=== PATIENT | female | born 1960 | race African-American/Black ===

== ENCOUNTER 2020-07-11 23:19 | Inpatient (IN) | payer MEDICAID ==
[~2020-07-11] VITALS: Ht 157.5 cm; Wt 77.4 kg
[2020-07-11] MEDS ORDERED: IPRATROPIUM BROMIDE (0.02%) 0.5MG/2.5ML NEB HHN STA (23:21)
[2020-07-11] MEDS ORDERED: MAGNESIUM 2 G PREMIX 50 ML IV STA (23:21)
[2020-07-11] MEDS ORDERED: METHYLPREDNISOLONE SOD SUCC 125 MG/2 ML VIAL IV STA (23:21)
[2020-07-11] MEDS ORDERED: ALBUTEROL (0.083%) 2.5MG/3ML NEB HHN STA (23:21)
[2020-07-12] LABS: HEMATOCRIT 40.8 % (36.0-48.0); HEMOGLOBIN 13.6 g/dL (12.0-16.0); MEAN CORPUSCULAR HEMOGLOBIN 27.6 pg (28.0-32.0); MEAN CORPUSCULAR VOLUME 82.8 fL (81.0-99.0); PLATELET 208 x1000/uL (130-400); RED BLOOD CELL COUNT 4.92 mill/uL (4.2-5.4); RED CELL DISTRIBUTION WIDTH 14.2 % (11.6-14.6)
[2020-07-12 00:13] LABS: CHLORIDE 109 mEq/L (98-107)
[2020-07-12] MEDS ORDERED: ASPIRIN 325MG EC TABLET PO NR (01:15)
[2020-07-12] MEDS ORDERED: FUROSEMIDE 100MG/10ML VIAL IVP NR (01:30)
[2020-07-12] MEDS: METHOCARBAMOL 750MG TABLET PO SCH ×2 (13:22→22:23)
[2020-07-13 00:30] VITALS: BP 136/83
[2020-07-13] MEDS ORDERED: IPRATROPIUM/ALBUTEROL 0.5-3(2.5)MG/3ML NEB HHN PRN (01:15)
[2020-07-13] MEDS: IPRATROPIUM/ALBUTEROL 0.5-3(2.5)MG/3ML NEB HHN SCH ×4 (03:46→21:25)
[2020-07-13 04:00] VITALS: BP 124/82
[2020-07-13] MEDS: METHOCARBAMOL 750MG TABLET PO SCH ×3 (06:15→22:00)
[2020-07-13] MEDS: LEVOFLOXACIN 500MG PREMIX 100 ML IV SCH (06:15)
[2020-07-13] MEDS: PANTOPRAZOLE 40MG DR TABLET PO SCH (06:16)
[2020-07-13 08:00] VITALS: BP 112/87
[2020-07-13] MEDS ORDERED: METHYLPREDNISOLONE SOD SUCC 40 MG/ML VIAL IV SCH (08:00)
[2020-07-13] MEDS ORDERED: ENOXAPARIN 30MG/0.3ML SYR SUBCUT SCH (09:00)
[2020-07-13] MEDS: ASPIRIN 81MG EC TABLET PO SCH (09:42)
[2020-07-13] MEDS ORDERED: POTASSIUM CHLORIDE 20MEQ TABLET SR PO NR (11:00)
[2020-07-13 12:00] VITALS: BP 117/74
[2020-07-13] MEDS: FUROSEMIDE 40MG/4ML VIAL IVP SCH (12:13)
[2020-07-13] MEDS: NICOTINE 14MG PATCH TD SCH (12:13)
[2020-07-13 13:44] LABS: *BENZODIAZEPINES SCREEN URINE NEGATIVE (NEGATIVE); OPIATES URINE SCREEN NEGATIVE (NEGATIVE); PHENCYCLIDINE URINE SCREEN NEGATIVE (NEGATIVE)
[2020-07-13 13:45] LABS: *AMPHETAMINES SCREEN URINE NEGATIVE (NEGATIVE); *BARBITURATES SCREEN URINE NEGATIVE (NEGATIVE); *COCAINE SCREEN URINE PRESUMTIVE POSITIVE (NEGATIVE); CANNABINOID URINE SCREEN NEGATIVE (NEGATIVE)
[2020-07-13 13:47] LABS: METHADONE URINE SCREEN NEGATIVE (NEGATIVE)
[2020-07-13] MEDS: BUDESONIDE 0.5MG/2ML NEB HHN SCH ×2 (15:09→21:25)
[2020-07-13 16:00] VITALS: BP 116/88
[2020-07-13] MEDS ORDERED: MONTELUKAST SODIUM 10MG TABLET PO SCH (17:00)
[2020-07-13] MEDS ORDERED: DIGOXIN 125MCG TABLET PO SCH (18:00)
[2020-07-13 20:00] VITALS: BP 129/84
[2020-07-14] VITALS: BP 121/77
[2020-07-14] MEDS: IPRATROPIUM/ALBUTEROL 0.5-3(2.5)MG/3ML NEB HHN SCH ×3 (01:48→15:41)
[2020-07-14 04:00] VITALS: BP 119/75
[2020-07-14] MEDS: METHOCARBAMOL 750MG TABLET PO SCH ×2 (06:23→14:13)
[2020-07-14] MEDS: PANTOPRAZOLE 40MG DR TABLET PO SCH (06:23)
[2020-07-14 06:34] LABS: CHLORIDE 106 mEq/L (98-107)
[2020-07-14 06:36] LABS: BASOPHILS % 0.5 % (0.0-2.0); HEMATOCRIT. 39.8 % (36.0-48.0); HEMOGLOBIN. 13.1 g/dL (12.0-16.0); LYMPHOCYTES % 12.2 % (20.0-50.0); MEAN CORPUSCULAR HEMOGLOBIN 26.9 pg (28.0-32.0); MEAN CORPUSCULAR VOLUME 81.7 fL (81.0-99.0); MEAN PLATELET VOLUME 9.1 fl (7.4-10.4); MONOCYTES % 6.2 % (2.0-8.0); NEUTROPHILS % 81.1 % (40.0-76.0); PLATELET 228 x1000/uL (130-400); RED BLOOD CELL COUNT 4.86 mill/uL (4.2-5.4); RED CELL DISTRIBUTION WIDTH 13.8 % (11.6-14.6)
[2020-07-14 08:00] VITALS: BP 133/85
[2020-07-14] MEDS ORDERED: ENOXAPARIN 40MG/0.4ML SYR SUBCUT SCH (09:00)
[2020-07-14] MEDS: FUROSEMIDE 40MG/4ML VIAL IVP SCH (09:24)
[2020-07-14] MEDS: LEVOFLOXACIN 500MG PREMIX 100 ML IV SCH (09:24)
[2020-07-14] MEDS: NICOTINE 14MG PATCH TD SCH (09:24)
[2020-07-14] MEDS: ASPIRIN 81MG EC TABLET PO SCH (09:28)
[2020-07-14] MEDS: BUDESONIDE 0.5MG/2ML NEB HHN SCH (09:40)
[2020-07-14 12:00] VITALS: BP 115/65
[2020-07-14] MEDS ORDERED: FURO-151 MT (13:30)
[2020-07-14] MEDS ORDERED: POTA20TA82 MT (13:30)
[2020-07-14] MEDS ORDERED: ALBU18HF2 IH (13:30)
[2020-07-14] MEDS ORDERED: FLUT1DIS3 INH (13:30)
[2020-07-14] MEDS ORDERED: LOSA25TA26 MT (13:30)
[2020-07-14] MEDS ORDERED: CARV12.545 MT (13:30)
[2020-07-14 14:51] LABS: CLARITY URINE CLEAR (CLEAR); COLOR URINE YELLOW (YELLOW); KETONES URINE NEGATIVE (NEGATIVE); LEUKOCYTE ESTERASE URINE NEGATIVE (NEGATIVE); NITRITE URINE NEGATIVE (NEGATIVE); OCCULT BLOOD URINE NEGATIVE (NEGATIVE); PROTEIN URINE NEGATIVE (NEGATIVE); SPECIFIC GRAVITY URINE 1.013 (1.005-1.030); UROBILINOGEN URINE 0.2 E.U./dL (0.2-1.0)
[2020-07-14 16:41] VITALS: BP 115/65
[2020-07-15] MEDS ORDERED: FAMOTIDINE 20MG TABLET PO SCH (07:10)
== END 2020-07-14 17:10 | disposition home or self-care (01) | DRG 133 ==
LOC: ER 23:19 → 8WST 07-12 00:40 → CANRESERV 07-12 08:26 → ENRESERV 07-12 08:26 → 8WST 07-12 23:42
PROVIDERS: ADMIT Internal Medicine; ATTEND Internal Medicine
DX: J96.00 Acute respiratory failure, unspecified whether with hypoxia or hypercapnia (principal); I50.23 Acute on chronic systolic (congestive) heart failure; J44.1 Chronic obstructive pulmonary disease with (acute) exacerbation; E87.8 Other disorders of electrolyte and fluid balance, not elsewhere classified; I11.0 Hypertensive heart disease with heart failure; F17.210 Nicotine dependence, cigarettes, uncomplicated; E87.6 Hypokalemia; F14.10 Cocaine abuse, uncomplicated; Z20.822 Contact with and (suspected) exposure to COVID-19; Z71.6 Tobacco abuse counseling; Z86.711 Personal history of pulmonary embolism; Z91.14 Patient's other noncompliance with medication regimen
CPT/HCPCS: 36415; 71045; 80048; 80053; 80305; 81003; 83735; 83880; 84484; 85025; 85027; 93005; 93306; 94640; 94644; 96365; 96375; 99285; C9803; J1650; J1940; J1956; J2920; J2930; J3475; J7626; U0003; U0005

== ENCOUNTER 2020-12-01 10:39 | Emergency (ER) | payer MEDICAID ==
[~2020-12-01] VITALS: Ht 157.5 cm; Wt 73.0 kg
[~2020-12-01 10:39] MED LIST: ALBU18HF2 IH; CARV12.545 MT; FLUT1DIS3 INH; FURO-151 MT; LOSA25TA26 MT; POTA20TA82 MT
[2020-12-01] MEDS ORDERED: AMOX1TAB16 MT (11:44)
[2020-12-01] MEDS ORDERED: TETANUS, DIPHTHERIA, PERTUSSIS VAC/PF 0.5ML (>10YR OLD) IM ONE (11:45)
[2020-12-01 11:57] VITALS: BP 152/86
== END 2020-12-01 11:58 | disposition home or self-care (01) ==
LOC: ER 10:53
DX: S81.851A Open bite, right lower leg, initial encounter (principal); I11.0 Hypertensive heart disease with heart failure; I50.9 Heart failure, unspecified; Z79.899 Other long term (current) drug therapy; W50.3XXA Accidental bite by another person, initial encounter; Y93.89 Activity, other specified; Y92.89 Other specified places as the place of occurrence of the external cause; Y99.8 Other external cause status
CPT/HCPCS: 90471; 90715; 99283

== ENCOUNTER 2021-01-25 15:03 | Inpatient (IN) | payer MEDICAID ==
[~2021-01-25] VITALS: Ht 154.9 cm; Wt 75.1 kg
[~2021-01-25 15:03] MED LIST changes: +AMOX1TAB16 MT
[2021-01-25 15:57] LABS: BASOPHILS % 0.7 % (0.0-2.0); EOSINOPHILS % 2.7 % (0.0-5.0); HEMOGLOBIN. 12.1 g/dL (12.0-16.0); LYMPHOCYTES % 33.5 % (20.0-50.0); MEAN CORPUSCULAR HEMOGLOBIN 26.4 pg (28.0-32.0); MEAN CORPUSCULAR VOLUME 84.8 fL (81.0-99.0); MEAN PLATELET VOLUME 7.9 fl (7.4-10.4); MONOCYTES % 7.1 % (2.0-8.0); PLATELET 226 x1000/uL (130-400); RED CELL DISTRIBUTION WIDTH 13.9 % (11.6-14.6)
[2021-01-25] MEDS ORDERED: LORAZEPAM 2MG/ML CPJ IV ONE (16:00)
[2021-01-25 16:02] LABS: CHLORIDE 112 mEq/L (98-107)
[2021-01-25] MEDS ORDERED: MORPHINE SULFATE 2 MG/ML CPJ (NOT FOR IM USE) IV ONE (18:45)
[2021-01-25] MEDS ORDERED: ASPIRIN 81MG TABLET PO ONE (18:45)
[2021-01-25 18:51] LABS: *AMPHETAMINES SCREEN URINE NEGATIVE (NEGATIVE); *BARBITURATES SCREEN URINE NEGATIVE (NEGATIVE); *BENZODIAZEPINES SCREEN URINE NEGATIVE (NEGATIVE)
[2021-01-25 18:53] LABS: *COCAINE SCREEN URINE PRESUMTIVE POSITIVE (NEGATIVE); CANNABINOID URINE SCREEN NEGATIVE (NEGATIVE); METHADONE URINE SCREEN NEGATIVE (NEGATIVE); OPIATES URINE SCREEN NEGATIVE (NEGATIVE); PHENCYCLIDINE URINE SCREEN NEGATIVE (NEGATIVE)
[2021-01-25] MEDS ORDERED: ENOXAPARIN 60MG/0.6ML SYR SUBCUT ONE (19:45)
[2021-01-25] MEDS ORDERED: ONDANSETRON HCL 4MG/2ML INJ IV PRN (21:30)
[2021-01-25] MEDS ORDERED: ACETAMINOPHEN 325MG TABLET PO PRN (21:30)
[2021-01-25] MEDS: ATORVASTATIN CALCIUM 40MG TABLET PO SCH (22:00)
[2021-01-26 09:28] LABS: BASOPHILS % 1.3 % (0.0-2.0); EOSINOPHILS % 2.2 % (0.0-5.0); HEMOGLOBIN. 11.8 g/dL (12.0-16.0); LYMPHOCYTES % 33.5 % (20.0-50.0); MEAN CORPUSCULAR HEMOGLOBIN 26.9 pg (28.0-32.0); MEAN CORPUSCULAR VOLUME 84.2 fL (81.0-99.0); MEAN PLATELET VOLUME 8.1 fl (7.4-10.4); MONOCYTES % 8.3 % (2.0-8.0); NEUTROPHILS % 54.7 % (40.0-76.0); PLATELET 229 x1000/uL (130-400); RED BLOOD CELL COUNT 4.39 mill/uL (4.2-5.4); RED CELL DISTRIBUTION WIDTH 14.3 % (11.6-14.6)
[2021-01-26 09:37] LABS: INR 1.1; PROTHROMBIN TIME 11.3 sec (9.6-11.0)
[2021-01-26 10:05] LABS: CHLORIDE 113 mEq/L (98-107)
[2021-01-26] MEDS: LOSARTAN POTASSIUM 25 MG TABLET PO SCH (10:22)
[2021-01-26] MEDS: FUROSEMIDE 40MG/4ML VIAL IVP SCH (10:22)
[2021-01-26] MEDS: ASPIRIN 81MG EC TABLET PO SCH (10:22)
[2021-01-26] MEDS: ENOXAPARIN 80MG/0.8ML SYR SUBCUT SCH ×2 (10:23→20:17)
[2021-01-26 10:57] VITALS: BP 125/80
[2021-01-26] MEDS ORDERED: DIGO125T80 MT (11:15)
[2021-01-26] MEDS ORDERED: METO-396 MT (11:15)
[2021-01-26] MEDS: TRAMADOL 50MG TABLET PO PRN ×2 (11:27→18:41)
[2021-01-26 12:00] VITALS: BP 124/78
[2021-01-26] MEDS ORDERED: BENZONATATE 100MG CAPSULE PO PRN (13:45)
[2021-01-26 16:00] VITALS: BP 114/62
[2021-01-26 20:00] VITALS: BP 108/68
[2021-01-26] MEDS: ATORVASTATIN CALCIUM 40MG TABLET PO SCH (20:20)
[2021-01-26] MEDS: IPRATROPIUM/ALBUTEROL 0.5-3(2.5)MG/3ML NEB HHN SCH (20:47)
[2021-01-27] VITALS: BP 115/80
[2021-01-27] MEDS: IPRATROPIUM/ALBUTEROL 0.5-3(2.5)MG/3ML NEB HHN SCH ×4 (01:48→20:58)
[2021-01-27] MEDS: TRAMADOL 50MG TABLET PO PRN ×3 (02:05→17:54)
[2021-01-27 04:00] VITALS: BP 130/82
[2021-01-27 06:24] LABS: BASOPHILS % 1.1 % (0.0-2.0); EOSINOPHILS % 1.7 % (0.0-5.0); HEMATOCRIT. 37.4 % (36.0-48.0); HEMOGLOBIN. 12.2 g/dL (12.0-16.0); MEAN CORPUSCULAR HEMOGLOBIN 27.2 pg (28.0-32.0); MEAN CORPUSCULAR VOLUME 83.4 fL (81.0-99.0); MEAN PLATELET VOLUME 8.3 fl (7.4-10.4); MONOCYTES % 7.8 % (2.0-8.0); NEUTROPHILS % 65.4 % (40.0-76.0); PLATELET 226 x1000/uL (130-400); RED BLOOD CELL COUNT 4.49 mill/uL (4.2-5.4); RED CELL DISTRIBUTION WIDTH 13.7 % (11.6-14.6)
[2021-01-27 06:28] LABS: CHLORIDE 107 mEq/L (98-107)
[2021-01-27 08:00] VITALS: BP 127/88
[2021-01-27] MEDS: ENOXAPARIN 80MG/0.8ML SYR SUBCUT SCH ×3 (09:00→20:28)
[2021-01-27] MEDS: LOSARTAN POTASSIUM 25 MG TABLET PO SCH (09:06)
[2021-01-27] MEDS: FUROSEMIDE 40MG/4ML VIAL IVP SCH (09:06)
[2021-01-27] MEDS: ASPIRIN 81MG EC TABLET PO SCH (09:06)
[2021-01-27 12:00] VITALS: BP 122/70
[2021-01-27 16:00] VITALS: BP 117/86
[2021-01-27] MEDS: LIDOCAINE 5% PATCH TOP SCH (17:57)
[2021-01-27 20:00] VITALS: BP 103/70
[2021-01-27] MEDS: ATORVASTATIN CALCIUM 40MG TABLET PO SCH (20:28)
[2021-01-28] VITALS: BP 113/74
[2021-01-28] MEDS: TRAMADOL 50MG TABLET PO PRN ×2 (00:36→09:22)
[2021-01-28] MEDS: IPRATROPIUM/ALBUTEROL 0.5-3(2.5)MG/3ML NEB HHN SCH ×2 (02:30→08:50)
[2021-01-28 04:00] VITALS: BP 98/56
[2021-01-28 06:42] LABS: BASOPHILS % 0.1 % (0.0-2.0); EOSINOPHILS % 1.3 % (0.0-5.0); HEMATOCRIT. 37.6 % (36.0-48.0); HEMOGLOBIN. 12.3 g/dL (12.0-16.0); LYMPHOCYTES % 25.4 % (20.0-50.0); MEAN CORPUSCULAR HEMOGLOBIN 27.1 pg (28.0-32.0); MEAN CORPUSCULAR VOLUME 82.9 fL (81.0-99.0); MEAN PLATELET VOLUME 8.1 fl (7.4-10.4); MONOCYTES % 8.1 % (2.0-8.0); NEUTROPHILS % 65.1 % (40.0-76.0); PLATELET 240 x1000/uL (130-400); RED BLOOD CELL COUNT 4.54 mill/uL (4.2-5.4)
[2021-01-28 06:54] LABS: CHLORIDE 105 mEq/L (98-107)
[2021-01-28 08:00] VITALS: BP 108/72
[2021-01-28] MEDS: LOSARTAN POTASSIUM 25 MG TABLET PO SCH ×2 (09:00→09:21)
[2021-01-28] MEDS: ENOXAPARIN 80MG/0.8ML SYR SUBCUT SCH (09:00)
[2021-01-28] MEDS: ASPIRIN 81MG EC TABLET PO SCH (09:20)
[2021-01-28] MEDS: LIDOCAINE 5% PATCH TOP SCH (09:21)
[2021-01-28] MEDS: FUROSEMIDE 40MG/4ML VIAL IVP SCH (09:21)
[2021-01-28] MEDS ORDERED: BENZ100C86 PO (10:09)
[2021-01-28] MEDS ORDERED: LOSA25TA3 PO (10:09)
[2021-01-28] MEDS ORDERED: LIP40 PO (10:09)
[2021-01-28] MEDS ORDERED: ASPI-1406 PO (10:09)
[2021-01-28 12:00] VITALS: BP 120/80
[2021-01-28 12:18] VITALS: BP 120/80
== END 2021-01-28 14:15 | disposition home or self-care (01) | DRG 203 ==
LOC: ER 15:03 → 7EST 20:13 → EDBEDREQTM 20:31 → EDBEDREQ 20:31 → ENRESERV 01-26 07:25
PROVIDERS: ADMIT Internal Medicine; ATTEND Internal Medicine
DX: M94.0 Chondrocostal junction syndrome [Tietze] (principal); I33.0 Acute and subacute infective endocarditis; E44.1 Mild protein-calorie malnutrition; I11.0 Hypertensive heart disease with heart failure; I50.9 Heart failure, unspecified; I45.2 Bifascicular block; F17.210 Nicotine dependence, cigarettes, uncomplicated; I44.0 Atrioventricular block, first degree; J44.9 Chronic obstructive pulmonary disease, unspecified; F14.90 Cocaine use, unspecified, uncomplicated; Z82.3 Family history of stroke; Z86.711 Personal history of pulmonary embolism; Z79.2 Long term (current) use of antibiotics; Z79.899 Other long term (current) drug therapy; Z71.6 Tobacco abuse counseling; Z71.51 Drug abuse counseling and surveillance of drug abuser
CPT/HCPCS: 36415; 71045; 80048; 80053; 80061; 80305; 83880; 84484; 85025; 93005; 93306; 94640; 99285; J1650; J1940; J2060; J2270

== ENCOUNTER 2021-04-23 07:43 | Inpatient (IN) | payer MEDICAID ==
[~2021-04-23] VITALS: Ht 317.5 cm; Wt 62.7 kg
[~2021-04-23 07:43] MED LIST changes: -AMOX1TAB16 MT; +ASPI-1406 PO; +BENZ100C86 PO; -CARV12.545 MT; -FLUT1DIS3 INH; +LIP40 PO; +LOSA25TA3 PO; -POTA20TA82 MT
[2021-04-23] MEDS ORDERED: ALBUTEROL (0.083%) 2.5MG/3ML NEB HHN STA (07:58)
[2021-04-23] MEDS ORDERED: METHYLPREDNISOLONE SOD SUCC 125 MG/2 ML VIAL IV STA (07:58)
[2021-04-23] MEDS ORDERED: NITROGLYCERIN 0.4MG TABLET SL SL PRN (08:00)
[2021-04-23] MEDS ORDERED: ASPIRIN 81MG TABLET PO ONE (08:00)
[2021-04-23 08:21] LABS: BASOPHILS % 0.7 % (0.0-2.0); EOSINOPHILS % 0.9 % (0.0-5.0); HEMATOCRIT. 36.8 % (36.0-48.0); HEMOGLOBIN. 11.9 g/dL (12.0-16.0); LYMPHOCYTES % 30.9 % (20.0-50.0); MEAN CORPUSCULAR HEMOGLOBIN 26.6 pg (28.0-32.0); MEAN CORPUSCULAR VOLUME 82.3 fL (81.0-99.0); MEAN PLATELET VOLUME 8.5 fl (7.4-10.4); MONOCYTES % 5.3 % (2.0-8.0); NEUTROPHILS % 62.2 % (40.0-76.0); PLATELET 232 x1000/uL (130-400); RED BLOOD CELL COUNT 4.47 mill/uL (4.2-5.4); RED CELL DISTRIBUTION WIDTH 14.6 % (11.6-14.6)
[2021-04-23 08:26] LABS: CHLORIDE 109 mEq/L (98-107)
[2021-04-23] MEDS ORDERED: ONDANSETRON HCL 4MG/2ML INJ IV PRN (11:45)
[2021-04-23] MEDS: METHYLPREDNISOLONE SOD SUCC 40 MG/ML VIAL IV SCH ×2 (12:15→20:40)
[2021-04-23] MEDS ORDERED: POTASSIUM CHLORIDE 20MEQ TABLET SR PO NR (15:00)
[2021-04-23 16:00] VITALS: BP 109/69
[2021-04-23 17:42] VITALS: BP 109/69
[2021-04-23 17:58] LABS: *AMPHETAMINES SCREEN URINE NEGATIVE (NEGATIVE); *BARBITURATES SCREEN URINE NEGATIVE (NEGATIVE); *BENZODIAZEPINES SCREEN URINE NEGATIVE (NEGATIVE); *COCAINE SCREEN URINE PRESUMTIVE POSITIVE (NEGATIVE); METHADONE URINE SCREEN NEGATIVE (NEGATIVE)
[2021-04-23 17:59] LABS: CANNABINOID URINE SCREEN NEGATIVE (NEGATIVE); OPIATES URINE SCREEN NEGATIVE (NEGATIVE); PHENCYCLIDINE URINE SCREEN NEGATIVE (NEGATIVE)
[2021-04-23] MEDS: FUROSEMIDE 40MG/4ML VIAL IVP SCH (19:08)
[2021-04-23 20:00] VITALS: BP 112/53
[2021-04-23] MEDS: IPRATROPIUM/ALBUTEROL 0.5-3(2.5)MG/3ML NEB HHN SCH (20:00)
[2021-04-23] MEDS: FAMOTIDINE 20MG TABLET PO SCH (20:40)
[2021-04-23] MEDS: ENOXAPARIN 40MG/0.4ML SYR SUBCUT SCH (21:17)
[2021-04-24] VITALS: BP 106/56
[2021-04-24] MEDS: IPRATROPIUM/ALBUTEROL 0.5-3(2.5)MG/3ML NEB HHN SCH ×6 (01:03→20:30)
[2021-04-24] MEDS: METHYLPREDNISOLONE SOD SUCC 40 MG/ML VIAL IV SCH ×3 (03:59→21:01)
[2021-04-24 04:00] VITALS: BP 100/44
[2021-04-24 07:48] VITALS: BP 117/51
[2021-04-24] MEDS: FUROSEMIDE 40MG/4ML VIAL IVP SCH (09:06)
[2021-04-24] MEDS ORDERED: METO25TA6 MT (09:15)
[2021-04-24 12:00] VITALS: BP 120/60
[2021-04-24 16:00] VITALS: BP 129/63
[2021-04-24 20:00] VITALS: BP 117/64
[2021-04-24] MEDS: FAMOTIDINE 20MG TABLET PO SCH (21:00)
[2021-04-24] MEDS: ENOXAPARIN 40MG/0.4ML SYR SUBCUT SCH (21:01)
[2021-04-24] MEDS: ACETAMINOPHEN 325MG TABLET PO PRN (23:20)
[2021-04-25] VITALS: BP 144/82
[2021-04-25] MEDS: IPRATROPIUM/ALBUTEROL 0.5-3(2.5)MG/3ML NEB HHN SCH ×6 (00:09→19:52)
[2021-04-25 04:00] VITALS: BP 135/82
[2021-04-25] MEDS: ACETAMINOPHEN 325MG TABLET PO PRN ×2 (04:06→20:16)
[2021-04-25] MEDS: METHYLPREDNISOLONE SOD SUCC 40 MG/ML VIAL IV SCH ×3 (04:06→20:15)
[2021-04-25 08:00] VITALS: BP 146/96
[2021-04-25] MEDS: FUROSEMIDE 40MG/4ML VIAL IVP SCH (09:05)
[2021-04-25] MEDS: CLONIDINE 0.1MG TABLET PO PRN (09:46)
[2021-04-25 12:00] VITALS: BP 128/76
[2021-04-25] MEDS ORDERED: FURO-151 MT (12:35)
[2021-04-25] MEDS ORDERED: P20 MT (12:35)
[2021-04-25 16:00] VITALS: BP 138/80
[2021-04-25 20:00] VITALS: BP 131/84
[2021-04-25] MEDS: FAMOTIDINE 20MG TABLET PO SCH (20:15)
[2021-04-25] MEDS: ENOXAPARIN 40MG/0.4ML SYR SUBCUT SCH (20:15)
[2021-04-25] MEDS ORDERED: LOPERAMIDE HCL 2MG CAPSULE PO PRN (23:30)
[2021-04-26] VITALS: BP 137/76
[2021-04-26] MEDS: IPRATROPIUM/ALBUTEROL 0.5-3(2.5)MG/3ML NEB HHN SCH ×4 (00:40→12:36)
[2021-04-26] MEDS: ACETAMINOPHEN 325MG TABLET PO PRN (02:02)
[2021-04-26] MEDS: METHYLPREDNISOLONE SOD SUCC 40 MG/ML VIAL IV SCH ×2 (03:30→11:17)
[2021-04-26] MEDS: CLONIDINE 0.1MG TABLET PO PRN (03:45)
[2021-04-26 04:00] VITALS: BP 148/98
[2021-04-26 08:00] VITALS: BP 129/88
[2021-04-26] MEDS: FUROSEMIDE 40MG/4ML VIAL IVP SCH (08:34)
[2021-04-26] MEDS ORDERED: POTASSIUM CHLORIDE 20MEQ TABLET SR PO NR (08:45)
[2021-04-26 11:41] VITALS: BP 120/74
[2021-04-26 12:00] VITALS: BP 120/74
[2021-04-26] MEDS ORDERED: PNEUMOCOCCAL 23-VAL P-SAC VAC 0.5 ML IM ONE (14:00)
== END 2021-04-26 14:55 | disposition home or self-care (01) | DRG 140 ==
LOC: ER 07:43 → 8WST 10:18 → EDBEDREQ 10:20 → ENRESERV 13:09 → 5WST 13:50
PROVIDERS: ADMIT Internal Medicine; ATTEND Internal Medicine
DX: J44.1 Chronic obstructive pulmonary disease with (acute) exacerbation (principal); I50.23 Acute on chronic systolic (congestive) heart failure; I42.9 Cardiomyopathy, unspecified; J68.0 Bronchitis and pneumonitis due to chemicals, gases, fumes and vapors; T59.891A Toxic effect of other specified gases, fumes and vapors, accidental (unintentional), initial encounter; E87.8 Other disorders of electrolyte and fluid balance, not elsewhere classified; I11.0 Hypertensive heart disease with heart failure; E87.6 Hypokalemia; R07.9 Chest pain, unspecified; F14.90 Cocaine use, unspecified, uncomplicated; Z20.822 Contact with and (suspected) exposure to COVID-19; F17.210 Nicotine dependence, cigarettes, uncomplicated; Y92.89 Other specified places as the place of occurrence of the external cause; Z79.899 Other long term (current) drug therapy; Z79.82 Long term (current) use of aspirin; Z71.51 Drug abuse counseling and surveillance of drug abuser
CPT/HCPCS: 36415; 71045; 80053; 80305; 83880; 84484; 85025; 87426; 90732; 93005; 94640; 99285; C1893; J1650; J1940; J2920; J2930

== ENCOUNTER 2022-03-05 08:17 | Inpatient (IN) | payer MEDICAID ==
[~2022-03-05] VITALS: Ht 154.9 cm; Wt 66.3 kg
[~2022-03-05 08:17] MED LIST changes: +METO25TA6 MT; +P20 MT
[2022-03-05] MEDS ORDERED: IPRATROPIUM BROMIDE (0.02%) 0.5MG/2.5ML NEB HHN STA (09:02)
[2022-03-05] MEDS ORDERED: METHYLPREDNISOLONE SOD SUCC 125 MG/2 ML VIAL IV STA (09:02)
[2022-03-05] MEDS ORDERED: FUROSEMIDE 40MG/4ML VIAL IV ONE (09:15)
[2022-03-05] MEDS ORDERED: ALBUTEROL (0.083%) 2.5MG/3ML NEB HHN SCH (09:30)
[2022-03-05 10:44] LABS: BASOPHILS % 0.7 % (0.0-2.0); HEMATOCRIT. 39.1 % (36.0-48.0); HEMOGLOBIN. 12.2 g/dL (12.0-16.0); LYMPHOCYTES % 22.1 % (20.0-50.0); MEAN CORPUSCULAR HEMOGLOBIN 26.3 pg (28.0-32.0); MEAN CORPUSCULAR VOLUME 84.1 fL (81.0-99.0); MEAN PLATELET VOLUME 9.5 fl (7.4-10.4); MONOCYTES % 10.9 % (2.0-8.0); NEUTROPHILS % 66.3 % (40.0-76.0); PLATELET 187 x1000/uL (130-400); RED BLOOD CELL COUNT 4.64 mill/uL (4.2-5.4); RED CELL DISTRIBUTION WIDTH 15.8 % (11.6-14.6)
[2022-03-05] MEDS ORDERED: METHYLPREDNISOLONE SOD SUCC 125 MG/2 ML VIAL IV NR (10:45)
[2022-03-05 10:49] LABS: CHLORIDE 106 mEq/L (98-107)
[2022-03-05 11:05] LABS: INR 1.4; PARTIAL THROMBOPLASTIN TIME 27.3 sec (23.4-31.0); PROTHROMBIN TIME 14.9 sec (9.6-11.0)
[2022-03-05] MEDS ORDERED: CEFTRIAXONE 1 G PREMIX 50 ML IV ONE (12:45)
[2022-03-05] MEDS ORDERED: AZITHROMYCIN 500MG/250ML 250 ML IV ONE (12:45)
[2022-03-05] MEDS ORDERED: GUAIFENESIN 200MG/10ML SUGAR FREE UDC PO PRN (15:30)
[2022-03-05] MEDS ORDERED: CLONIDINE 0.1MG TABLET PO PRN (15:30)
[2022-03-05] MEDS ORDERED: ACETAMINOPHEN 325MG TABLET PO PRN (15:30)
[2022-03-05] MEDS ORDERED: DOCUSATE SODIUM 100MG CAPSULE PO PRN (15:30)
[2022-03-05] MEDS ORDERED: IPRATROPIUM/ALBUTEROL 0.5-3(2.5)MG/3ML NEB HHN SCH (15:30)
[2022-03-05] MEDS ORDERED: FUROSEMIDE 100MG/10ML VIAL IVP NR (15:52)
[2022-03-05 16:00] VITALS: BP 116/74
[2022-03-05] MEDS: ENOXAPARIN 40MG/0.4ML SYR SUBCUT SCH ×2 (16:00→17:03)
[2022-03-05 16:30] VITALS: BP 116/74
[2022-03-05] MEDS ORDERED: BUDESONIDE 0.5MG/2ML NEB HHN SCH ×2 (16:45→21:00)
[2022-03-05] MEDS ORDERED: FUROSEMIDE 40MG/4ML VIAL IVP NR (16:45)
[2022-03-05 16:52] LABS: BG BASE EXCESS -1.4 mmol/L (-2.0-2.0); BG CARBOXYHEMOGLOBIN 1.1 % (0.5-1.5); BG DEOXYHEMOGLOBIN 0.7 % (0.0-5.0); BG HCO3 ACT 21.1 mmol/L (22.0-26.0); BG METHEMOGLOBIN 0.2 % (0.0-1.5); BG OXYGEN SATURATION 99.3 % (92.0-98.5); BG PCO2 28.9 mmHg (35.0-45.0); BG PH 7.481 (7.350-7.450); BG PO2 162.2 mmHg (75.0-100.0); BG SAMPLE SITE LEFT RADIAL; BG TOTAL HEMOGLOBIN 12.3 g/dL (12.0-18.0); BG VENT MODE NASAL CANNULA
[2022-03-05] MEDS: ONDANSETRON HCL 4MG/2ML INJ IV PRN (17:02)
[2022-03-05] MEDS: METHYLPREDNISOLONE SOD SUCC 40 MG/ML VIAL IV SCH (17:04)
[2022-03-05 17:21] LABS: FOLIC ACID (FOLATE) SERUM 16.3 ng/mL (>5.38)
[2022-03-05] MEDS ORDERED: DEXTROSE 50% WATER 50ML SYRINGE IV PRN (18:00)
[2022-03-05 18:08] LABS: CREATINE KINASE MB FRACTION 5.1 ng/mL (0.5-3.6)
[2022-03-05] MEDS: INSULIN LISPRO 100 UNITS/ML SUBCUT SCH ×2 (18:15→21:57)
[2022-03-05 19:57] VITALS: BP 121/91
[2022-03-05] MEDS: ALBUTEROL (0.083%) 2.5MG/3ML NEB HHN SCH (20:01)
[2022-03-05] MEDS: IPRATROPIUM BROMIDE (0.02%) 0.5MG/2.5ML NEB HHN SCH (20:01)
[2022-03-05] MEDS: BUDESONIDE 0.5MG/2ML NEB HHN SCH (20:02)
[2022-03-05] MEDS ORDERED: IOHEXOL-350 100 ML BOTTLE ONE (20:49)
[2022-03-05] MEDS: BLOOD SUGAR DIAGNOSTIC STRIP TEST SCH (21:36)
[2022-03-05] MEDS: ATORVASTATIN CALCIUM 40MG TABLET PO SCH (21:42)
[2022-03-05 23:21] LABS: CLARITY URINE CLEAR (CLEAR); COLOR URINE YELLOW (YELLOW); KETONES URINE NEGATIVE (NEGATIVE); LEUKOCYTE ESTERASE URINE NEGATIVE (NEGATIVE); NITRITE URINE NEGATIVE (NEGATIVE); OCCULT BLOOD URINE NEGATIVE (NEGATIVE); PROTEIN URINE NEGATIVE (NEGATIVE); SPECIFIC GRAVITY URINE 1.007 (1.005-1.030)
[2022-03-06 00:26] LABS: *AMPHETAMINES SCREEN URINE NEGATIVE (NEGATIVE); *BARBITURATES SCREEN URINE NEGATIVE (NEGATIVE); *BENZODIAZEPINES SCREEN URINE NEGATIVE (NEGATIVE); *COCAINE SCREEN URINE PRESUMTIVE POSITIVE (NEGATIVE); CANNABINOID URINE SCREEN NEGATIVE (NEGATIVE); METHADONE URINE SCREEN NEGATIVE (NEGATIVE); OPIATES URINE SCREEN NEGATIVE (NEGATIVE); PHENCYCLIDINE URINE SCREEN NEGATIVE (NEGATIVE)
[2022-03-06 00:43] VITALS: BP 115/78
[2022-03-06] MEDS: METHYLPREDNISOLONE SOD SUCC 40 MG/ML VIAL IV SCH ×3 (00:48→17:37)
[2022-03-06] MEDS: IPRATROPIUM BROMIDE (0.02%) 0.5MG/2.5ML NEB HHN SCH ×4 (01:51→19:50)
[2022-03-06] MEDS: ALBUTEROL (0.083%) 2.5MG/3ML NEB HHN SCH ×4 (01:51→19:50)
[2022-03-06 04:06] VITALS: BP 107/68
[2022-03-06] MEDS: BLOOD SUGAR DIAGNOSTIC STRIP TEST SCH ×4 (06:08→21:43)
[2022-03-06 06:23] LABS: HEMATOCRIT. 33.8 % (36.0-48.0); HEMOGLOBIN. 10.8 g/dL (12.0-16.0); MEAN CORPUSCULAR HEMOGLOBIN 26.3 pg (28.0-32.0); MEAN CORPUSCULAR VOLUME 82.2 fL (81.0-99.0); MEAN PLATELET VOLUME 9.4 fl (7.4-10.4); PLATELET 167 x1000/uL (130-400); RED BLOOD CELL COUNT 4.11 mill/uL (4.2-5.4); RED CELL DISTRIBUTION WIDTH 15.7 % (11.6-14.6)
[2022-03-06 07:12] LABS: CHLORIDE 102 mEq/L (98-107)
[2022-03-06 08:00] VITALS: BP 115/71
[2022-03-06] MEDS: INSULIN LISPRO 100 UNITS/ML SUBCUT SCH ×3 (08:29→21:46)
[2022-03-06] MEDS: LOSARTAN POTASSIUM 25 MG TABLET PO SCH (08:29)
[2022-03-06] MEDS: AZITHROMYCIN 250 MG TABLET PO SCH (08:29)
[2022-03-06] MEDS ORDERED: ASPIRIN 81MG EC TABLET PO SCH (09:00)
[2022-03-06 09:17] LABS: BG BASE EXCESS 0.2 mmol/L (-2.0-2.0); BG CARBOXYHEMOGLOBIN 0.8 % (0.5-1.5); BG DEOXYHEMOGLOBIN 3.3 % (0.0-5.0); BG FRACTION INSPIRED OXYGEN 28; BG HCO3 ACT 24.1 mmol/L (22.0-26.0); BG METHEMOGLOBIN 0.2 % (0.0-1.5); BG OXYGEN SATURATION 96.7 % (92.0-98.5); BG OXYHEMOGLOBIN 95.7 % (94.0-97.0); BG PCO2 36.3 mmHg (35.0-45.0); BG PO2 89.2 mmHg (75.0-100.0); BG SAMPLE SITE RIGHT RADIAL; BG TOTAL HEMOGLOBIN 11.9 g/dL (12.0-18.0); BG VENT MODE NASAL CANNULA
[2022-03-06 10:08] LABS: PLATELET ESTIMATE NORMAL
[2022-03-06] MEDS: BUDESONIDE 0.5MG/2ML NEB HHN SCH ×2 (10:11→19:50)
[2022-03-06 12:00] VITALS: BP 122/83
[2022-03-06] MEDS: APIXABAN 5 MG TABLET PO SCH ×2 (12:36→21:50)
[2022-03-06 16:00] VITALS: BP 111/63
[2022-03-06 17:09] LABS: CREATINE KINASE MB FRACTION 3.2 ng/mL (0.5-3.6)
[2022-03-06] MEDS: PANTOPRAZOLE SODIUM 40 MG/VIAL IV SCH (17:37)
[2022-03-06 20:00] VITALS: BP 134/76
[2022-03-06] MEDS: ATORVASTATIN CALCIUM 40MG TABLET PO SCH (21:39)
[2022-03-06] MEDS: NICOTINE 14MG PATCH TD SCH (21:39)
[2022-03-06] MEDS: FUROSEMIDE 40MG TABLET PO SCH (21:39)
[2022-03-06] MEDS: ONDANSETRON HCL 4MG/2ML INJ IV PRN (22:08)
[2022-03-07] VITALS (7 sets, daily range): BP systolic 96–130; BP diastolic 57–90
[2022-03-07 00:09] LABS: CREATINE KINASE MB FRACTION 3.2 ng/mL (0.5-3.6)
[2022-03-07] MEDS: ALBUTEROL (0.083%) 2.5MG/3ML NEB HHN SCH ×3 (01:30→13:10)
[2022-03-07] MEDS: IPRATROPIUM BROMIDE (0.02%) 0.5MG/2.5ML NEB HHN SCH ×3 (01:30→13:10)
[2022-03-07] MEDS: METHYLPREDNISOLONE SOD SUCC 40 MG/ML VIAL IV SCH ×2 (01:38→08:40)
[2022-03-07] MEDS: BLOOD SUGAR DIAGNOSTIC STRIP TEST SCH ×4 (06:20→20:10)
[2022-03-07 07:09] LABS: HEMATOCRIT 32.8 % (36.0-48.0); HEMOGLOBIN 10.4 g/dL (12.0-16.0); MEAN CORPUSCULAR VOLUME 81.9 fL (81.0-99.0); PLATELET 198 x1000/uL (130-400); RED BLOOD CELL COUNT 4.01 mill/uL (4.2-5.4); RED CELL DISTRIBUTION WIDTH 15.6 % (11.6-14.6)
[2022-03-07 07:31] LABS: CHLORIDE 104 mEq/L (98-107)
[2022-03-07 07:43] LABS: CREATINE KINASE 115 IU/L (26-192); CREATINE KINASE MB FRACTION 2.7 ng/mL (0.5-3.6)
[2022-03-07] MEDS: INSULIN LISPRO 100 UNITS/ML SUBCUT SCH ×4 (08:35→20:20)
[2022-03-07] MEDS: FUROSEMIDE 40MG TABLET PO SCH ×2 (08:40→20:06)
[2022-03-07] MEDS: APIXABAN 5 MG TABLET PO SCH ×2 (08:40→17:57)
[2022-03-07] MEDS: NICOTINE 14MG PATCH TD SCH (08:41)
[2022-03-07] MEDS: PANTOPRAZOLE SODIUM 40 MG/VIAL IV SCH (08:41)
[2022-03-07] MEDS: LOSARTAN POTASSIUM 25 MG TABLET PO SCH (08:54)
[2022-03-07] MEDS: AZITHROMYCIN 250 MG TABLET PO SCH (08:54)
[2022-03-07] MEDS: DIGOXIN 125MCG TABLET PO SCH (18:44)
[2022-03-07 18:59] LABS: HEMATOCRIT 34.5 % (36.0-48.0); MEAN CORPUSCULAR HEMOGLOBIN 26.3 pg (28.0-32.0); MEAN CORPUSCULAR VOLUME 82.9 fL (81.0-99.0); PLATELET 205 x1000/uL (130-400); RED BLOOD CELL COUNT 4.17 mill/uL (4.2-5.4); RED CELL DISTRIBUTION WIDTH 15.5 % (11.6-14.6)
[2022-03-07 19:09] LABS: CHLORIDE 104 mEq/L (98-107)
[2022-03-07] MEDS: ATORVASTATIN CALCIUM 40MG TABLET PO SCH (20:06)
[2022-03-07] MEDS: BUDESONIDE 0.5MG/2ML NEB HHN SCH (20:45)
[2022-03-07] MEDS ORDERED: MAGNESIUM HYDROXIDE 400MG/5ML 30ML UDC PO NR (21:15)
[2022-03-08 00:42] VITALS: BP 106/65
[2022-03-08] MEDS: BLOOD SUGAR DIAGNOSTIC STRIP TEST SCH ×4 (05:39→21:00)
[2022-03-08] MEDS: INSULIN LISPRO 100 UNITS/ML SUBCUT SCH ×4 (07:20→22:01)
[2022-03-08] MEDS: APIXABAN 5 MG TABLET PO SCH ×2 (08:08→17:44)
[2022-03-08] MEDS: AZITHROMYCIN 250 MG TABLET PO SCH (08:08)
[2022-03-08 08:09] VITALS: BP 97/68
[2022-03-08] MEDS: NICOTINE 14MG PATCH TD SCH (08:09)
[2022-03-08] MEDS: FUROSEMIDE 40MG TABLET PO SCH ×2 (08:09→21:58)
[2022-03-08] MEDS: PANTOPRAZOLE SODIUM 40 MG/VIAL IV SCH (08:09)
[2022-03-08] MEDS: PREDNISONE 20MG TABLET PO SCH (08:09)
[2022-03-08] MEDS: IPRATROPIUM BROMIDE (0.02%) 0.5MG/2.5ML NEB HHN SCH ×3 (10:11→21:29)
[2022-03-08] MEDS: BUDESONIDE 0.5MG/2ML NEB HHN SCH (10:11)
[2022-03-08] MEDS: ALBUTEROL (0.083%) 2.5MG/3ML NEB HHN SCH ×3 (10:11→21:29)
[2022-03-08 12:00] VITALS: BP 114/70
[2022-03-08 12:12] LABS: HEMATOCRIT 36.3 % (36.0-48.0); HEMOGLOBIN 11.3 g/dL (12.0-16.0); MEAN CORPUSCULAR HEMOGLOBIN 25.9 pg (28.0-32.0); MEAN CORPUSCULAR VOLUME 83.6 fL (81.0-99.0); PLATELET 219 x1000/uL (130-400); RED BLOOD CELL COUNT 4.35 mill/uL (4.2-5.4); RED CELL DISTRIBUTION WIDTH 15.8 % (11.6-14.6)
[2022-03-08 16:00] VITALS: BP 100/60
[2022-03-08] MEDS: DIGOXIN 125MCG TABLET PO SCH (17:44)
[2022-03-08 20:00] VITALS: BP 110/70
[2022-03-08] MEDS: ATORVASTATIN CALCIUM 40MG TABLET PO SCH (21:58)
[2022-03-09] VITALS: BP 108/66
[2022-03-09] MEDS: ALBUTEROL (0.083%) 2.5MG/3ML NEB HHN SCH ×4 (00:57→21:15)
[2022-03-09] MEDS: IPRATROPIUM BROMIDE (0.02%) 0.5MG/2.5ML NEB HHN SCH ×4 (00:57→21:16)
[2022-03-09 04:00] VITALS: BP 96/55
[2022-03-09] MEDS: BLOOD SUGAR DIAGNOSTIC STRIP TEST SCH ×4 (07:17→21:35)
[2022-03-09] MEDS: INSULIN LISPRO 100 UNITS/ML SUBCUT SCH ×4 (07:27→21:00)
[2022-03-09] MEDS: BUDESONIDE 0.5MG/2ML NEB HHN SCH (07:30)
[2022-03-09 08:00] VITALS: BP 119/74
[2022-03-09] MEDS: AZITHROMYCIN 250 MG TABLET PO SCH (08:24)
[2022-03-09] MEDS: FUROSEMIDE 40MG TABLET PO SCH ×2 (08:24→21:38)
[2022-03-09] MEDS: FAMOTIDINE 20MG TABLET PO SCH (08:24)
[2022-03-09] MEDS: PREDNISONE 20MG TABLET PO SCH (08:24)
[2022-03-09] MEDS: APIXABAN 5 MG TABLET PO SCH ×2 (08:24→17:45)
[2022-03-09] MEDS: NICOTINE 14MG PATCH TD SCH (08:25)
[2022-03-09 12:00] VITALS: BP 119/60
[2022-03-09 16:00] VITALS: BP 119/75
[2022-03-09 20:00] VITALS: BP 128/64
[2022-03-09] MEDS: DIGOXIN 125MCG TABLET PO SCH (20:07)
[2022-03-09] MEDS: ATORVASTATIN CALCIUM 40MG TABLET PO SCH (21:38)
[2022-03-10] VITALS (8 sets, daily range): BP systolic 114–152; BP diastolic 63–92
[2022-03-10] MEDS: ACETAMINOPHEN 325MG TABLET PO PRN ×3 (00:06→21:54)
[2022-03-10] MEDS: IPRATROPIUM BROMIDE (0.02%) 0.5MG/2.5ML NEB HHN SCH ×4 (02:43→21:32)
[2022-03-10] MEDS: ALBUTEROL (0.083%) 2.5MG/3ML NEB HHN SCH ×4 (02:43→21:32)
[2022-03-10] MEDS: BLOOD SUGAR DIAGNOSTIC STRIP TEST SCH ×4 (06:39→20:40)
[2022-03-10] MEDS: APIXABAN 5 MG TABLET PO SCH ×2 (08:52→17:33)
[2022-03-10] MEDS: FAMOTIDINE 20MG TABLET PO SCH (08:52)
[2022-03-10] MEDS: NICOTINE 14MG PATCH TD SCH (08:52)
[2022-03-10] MEDS: PREDNISONE 20MG TABLET PO SCH (08:52)
[2022-03-10] MEDS: INSULIN LISPRO 100 UNITS/ML SUBCUT SCH ×4 (08:53→20:41)
[2022-03-10] MEDS: FUROSEMIDE 40MG TABLET PO SCH ×2 (11:30→20:57)
[2022-03-10] MEDS: DIGOXIN 125MCG TABLET PO SCH (17:33)
[2022-03-10] MEDS: ATORVASTATIN CALCIUM 40MG TABLET PO SCH (20:57)
[2022-03-10] MEDS: PHENYLEPH/PRAMOXIN/GLYCR/PET RECTAL CREAM 26GM PR SCH (21:00)
[2022-03-11 03:34] VITALS: BP 126/75
[2022-03-11] MEDS: ACETAMINOPHEN 325MG TABLET PO PRN (03:43)
[2022-03-11] MEDS: BLOOD SUGAR DIAGNOSTIC STRIP TEST SCH ×2 (06:38→11:50)
[2022-03-11] MEDS: PHENYLEPH/PRAMOXIN/GLYCR/PET RECTAL CREAM 26GM PR SCH ×2 (06:40)
[2022-03-11] MEDS: INSULIN LISPRO 100 UNITS/ML SUBCUT SCH ×2 (07:20→13:06)
[2022-03-11] MEDS: FUROSEMIDE 40MG TABLET PO SCH (07:32)
[2022-03-11] MEDS: FAMOTIDINE 20MG TABLET PO SCH (07:32)
[2022-03-11] MEDS: APIXABAN 5 MG TABLET PO SCH (07:32)
[2022-03-11] MEDS: PREDNISONE 20MG TABLET PO SCH (07:34)
[2022-03-11] MEDS: NICOTINE 14MG PATCH TD SCH (07:34)
[2022-03-11 08:00] VITALS: BP 142/84
[2022-03-11] MEDS ORDERED: DOCUSATE SODIUM 100MG CAPSULE PO SCH (09:00)
[2022-03-11] MEDS ORDERED: PHENYLEPH/PRAMOXIN/GLYCR/PET RECTAL CREAM 26GM PR SCH (10:30)
[2022-03-11] MEDS ORDERED: SODIUM CHLORIDE 45ML SPRAY NS PRN (11:45)
[2022-03-11 12:03] VITALS: BP 136/86
[2022-03-11 13:33] VITALS: BP 136/86
== END 2022-03-11 14:07 | DRG 140 ==
LOC: ER 08:30 → 3WST 13:03 → EDBEDREQTM 13:08 → EDBEDREQ 13:08
PROVIDERS: ADMIT Internal Medicine; ATTEND Internal Medicine
DX: J44.1 Chronic obstructive pulmonary disease with (acute) exacerbation (principal); J96.01 Acute respiratory failure with hypoxia; I50.23 Acute on chronic systolic (congestive) heart failure; I21.A1 Myocardial infarction type 2; I42.9 Cardiomyopathy, unspecified; J81.1 Chronic pulmonary edema; K76.1 Chronic passive congestion of liver; E88.09 Other disorders of plasma-protein metabolism, not elsewhere classified; I48.92 Unspecified atrial flutter; N17.9 Acute kidney failure, unspecified; Z20.822 Contact with and (suspected) exposure to COVID-19; I11.0 Hypertensive heart disease with heart failure; E11.9 Type 2 diabetes mellitus without complications; F14.10 Cocaine abuse, uncomplicated; F17.210 Nicotine dependence, cigarettes, uncomplicated; K21.9 Gastro-esophageal reflux disease without esophagitis; F19.10 Other psychoactive substance abuse, uncomplicated; I48.91 Unspecified atrial fibrillation; E78.5 Hyperlipidemia, unspecified; I07.1 Rheumatic tricuspid insufficiency; I44.30 Unspecified atrioventricular block; Z88.8 Allergy status to other drugs, medicaments and biological substances; Z79.01 Long term (current) use of anticoagulants; Z79.82 Long term (current) use of aspirin; Z79.899 Other long term (current) drug therapy
CPT/HCPCS: 36415; 36600; 71045; 71275; 80048; 80053; 80061; 80162; 80305; 81003; 82375; 82550; 82553; 82607; 82652; 82746; 82805; 82962; 83036; 83735; 83880; 84100; 84439; 84443; 84481; 84484; 85025; 85027; 85379; 87426; 93005; 93306; 93970; 94640; 97110; 97116; 97162; 97166; 97535; 99285; C9113; J0456; J0696; J1650; J1815; J1940; J2405; J2920; J2930; J7512; J7626; Q9967

== ENCOUNTER 2022-04-25 13:04 | Emergency (ER) | payer MEDICAID ==
[~2022-04-25] VITALS: Ht 162.6 cm; Wt 68.0 kg
[2022-04-25 13:15] VITALS: BP 134/80
== END 2022-04-25 17:00 | disposition left against medical advice (07) ==
LOC: ER 13:42
DX: S49.82XA Other specified injuries of left shoulder and upper arm, initial encounter (principal); S29.8XXA Other specified injuries of thorax, initial encounter; I11.0 Hypertensive heart disease with heart failure; I50.9 Heart failure, unspecified; V18.0XXA Pedal cycle driver injured in noncollision transport accident in nontraffic accident, initial encounter; Y93.55 Activity, bike riding; Y92.488 Other paved roadways as the place of occurrence of the external cause
CPT/HCPCS: 71100; 73030; 99284

== ENCOUNTER 2023-01-07 05:25 | Emergency (ER) | payer MEDICAID ==
[~2023-01-07] VITALS: Ht 162.6 cm; Wt 66.0 kg
[~2023-01-07 05:25] MED LIST changes: +LOSA-412 PO; -LOSA25TA3 PO
[2023-01-07 05:28] VITALS: BP 142/90; PULSE 84; RESP 16; TEMP 98.2; O2SAT 100
== END 2023-01-07 10:55 | disposition left against medical advice (07) ==
LOC: ER 05:25
DX: M79.89 Other specified soft tissue disorders (principal); Z53.21 Procedure and treatment not carried out due to patient leaving prior to being seen by health care provider
CPT/HCPCS: 99281